=== PATIENT | female | born 1980 | race Caucasian/White ===

== ENCOUNTER → 2020-09-19 | Emergency (ER) | payer OTHER ==
[~2020-09-19] VITALS: Ht 157.5 cm; Wt 59.0 kg
== END | disposition home or self-care (01) ==
LOC: ER 14:40
DX: R50.83 Postvaccination fever (principal); R53.83 Other fatigue; T50.B95A Adverse effect of other viral vaccines, initial encounter; Y92.89 Other specified places as the place of occurrence of the external cause

== ENCOUNTER 2024-04-17 15:26 | Emergency (ER) | payer OTHER ==
[~2024-04-17] VITALS: Ht 147.3 cm; Wt 63.5 kg
[2024-04-17] MEDS ORDERED: GUAIFENESIN/DEXTROMETHORPHAN 100MG/10ML BLIST.PACK PO ONE (18:00)
[2024-04-17 18:29] LABS: HEMATOCRIT 40.2 % (36.0-45.00); HEMOGLOBIN 13.7 g/dL (12.0-15.00); MEAN CELL VOLUME 85.1 fL (80.00-100.00); MEAN CORPUSCULAR HEMOGLOBIN 29.1 pg (27.00-32.0); MEAN CORPUSCULAR HGB CONC 34.2 g/dl (32.0-36.0); PLATELET COUNT 297 K/uL (150-450); RED BLOOD COUNT 4.72 M/uL (4.00-6.00); RED CELL DISTRIBUTION WIDTH 13.8 % (11.5-14.5)
[2024-04-17] MEDS ORDERED: ZYRTEC10 MG PO (19:50)
[2024-04-17] MEDS ORDERED: GUAIFENESIN-DM10 M1 PO (19:50)
== END 2024-04-17 20:19 | disposition home or self-care (01) ==
LOC: ER 15:29
PROVIDERS: General Practice
DX: J00 Acute nasopharyngitis [common cold] (principal); Z20.822 Contact with and (suspected) exposure to COVID-19

== ENCOUNTER 2024-07-19 14:46 | Emergency (ER) | payer OTHER ==
[~2024-07-19] VITALS: Ht 147.3 cm; Wt 61.2 kg
[~2024-07-19 14:46] MED LIST: GUAIFENESIN-DM10 M1 PO; ZYRTEC10 MG PO
[2024-07-19] MEDS ORDERED: 0.9 % SODIUM CHLORIDE 500 ML IV STA (17:40)
== END 2024-07-19 20:18 | disposition home or self-care (01) ==
LOC: ER 15:00
DX: T67.01XA Heatstroke and sunstroke, initial encounter (principal)
CPT/HCPCS: 96365; 99282; J7042